=== PATIENT | female | born 1990 | race Caucasian/White ===

== ENCOUNTER → 2017-10-30 | Outpatient (CLI) | payer BC ==
[~2017-10-30] MED LIST: BUPIVACAINE HCL 0.25% 10 ML VIAL As Ordered; BUPIVACAINE HCL 0.25% 30 ML VIAL As Ordered; TRIAMCINOLONE ACETONIDE SUSP 40 MG/ML VIAL (J3301) As Ordered; diazePAM 5 MG TAB As Ordered; oxyCODONE 5MG TAB As Ordered
== END ==
LOC: M PAIN 14:15
DX: G89.29 Other chronic pain (principal); M79.1 Myalgia; Z79.899 Other long term (current) drug therapy; Z88.0 Allergy status to penicillin
CPT/HCPCS: J3301

== ENCOUNTER → 2017-10-30 | Outpatient (CLI) | payer BC | LOC: M PAIN 12:45 | DX: M79.1 Myalgia (principal); M54.5 Low back pain; G89.29 Other chronic pain; Z88.0 Allergy status to penicillin | CPT/HCPCS: G0463 ==

== ENCOUNTER → 2020-02-12 | Outpatient (REF) | payer BC ==
[~2020-02-12] MED LIST changes: -BUPIVACAINE HCL 0.25% 10 ML VIAL As Ordered; -BUPIVACAINE HCL 0.25% 30 ML VIAL As Ordered; +ECOT325T5 PO; +PERCOCET PO; -TRIAMCINOLONE ACETONIDE SUSP 40 MG/ML VIAL (J3301) As Ordered; +TYLE325T5 PO; -diazePAM 5 MG TAB As Ordered; +no home meds; -oxyCODONE 5MG TAB As Ordered
== END ==
LOC: M LAB REF 13:17
PROVIDERS: ATTEND Physician Assistant
DX: Z11.59 Encounter for screening for other viral diseases (principal); J02.9 Acute pharyngitis, unspecified

== ENCOUNTER → 2022-02-11 | Outpatient (CLI) | payer BC, MEDICAID | LOC: M PLAIMG 12:31 | PROVIDERS: ATTEND Ophthalmology | DX: H20.9 Unspecified iridocyclitis (principal) ==